=== PATIENT | female | born 1990 | race Caucasian/White ===

== ENCOUNTER 2020-05-19 07:55 | Outpatient (REF) | payer BC, SELFPAY ==
--- NOTE | ~2020-05-19 | US_ITS ---
EXAMINATION: US DIAGNOSTIC ULTRASOUND BREAST, LEFT CLINICAL INFORMATION: Palpable abnormality. COMPARISON: Mammogram of same day. TECHNIQUE: Ultrasound of the breast is performed with real-time stevenson scale imaging and color Doppler. FINDINGS: Targeted left breast ultrasound in region of palpable abnormality demonstrated at the 7:00 location approximately 5 cm from the nipple a heterogeneous and hypoechoic lesion which appears mildly lobulated with some of its margin not being well identified. No internal vascularity is seen. There is a small amount of distal sound enhancement. Lesion is wider than it is tall. The lesion measures approximately 8 x 4 x 8 mm in size. Ultrasound-guided biopsy is recommended. Results are discussed with the patient at time of visit. Breast center navigator called above recommendation to referring provider's office. US/US breast LT limited IMPRESSION: Indeterminate lesion region of palpable abnormality of the left breast for which ultrasound-guided core biopsy is recommended. ASSESSMENT: BI-RADS 4: Suspicious (subcategory 4A: Low suspicion for malignancy) RECOMMENDATION: Ultrasound-guided biopsy left breast
--- NOTE | ~2020-05-19 | MM_ITS ---
EXAMINATION: MM DIAGNOSTIC DIGITAL BREAST TOMOSYNTHESIS, BILATERAL LEFT BREAST ULTRASOUND CLINICAL INFORMATION: Left breast lump inferior medial aspect. The lifetime risk of breast cancer based on the Tyrer-Cuzick Model is 12.7%. COMPARISON: Mammography: None TECHNIQUE: Digital breast tomosynthesis is performed in both the craniocaudal and mediolateral oblique views along with computer-aided detection (CAD). Synthesized 2D images are generated from the tomosynthesis. Bilateral exaggerated craniocaudal views performed. Targeted left breast ultrasound. FINDINGS: The breasts are extremely dense, which lowers the sensitivity of mammography (ACR BI-RADS breast composition Category d). A few skin lesions are noted about the right breast. Within the deep medial aspect of the left breast there appears to be a 1.0 x 1.4 cm circumscribed density in region of palpable abnormality. No other significant findings are identified. No suspicious grouping of microcalcifications. Targeted left breast ultrasound in region of palpable abnormality demonstrated at the 7 o'clock location, approximately 5 cm from the nipple, a heterogeneous and hypoechoic lesion which appears mildly lobulated with some of its margin not being well identified. No internal vascularity is seen. There is a small amount of distal sound enhancement. Lesion is wider than it is tall. The lesion measures approximately 8 x 4 x 8 mm in size. Ultrasound-guided biopsy is recommended. Results are discussed with the patient at time of visit. Breast center navigator called above recommendation to referring provider's office. MM/MM tomosynthesis diagnostic BI IMPRESSION: Indeterminate lesion region of palpable abnormality of the left breast for which ultrasound-guided core biopsy is recommended. ASSESSMENT: BI-RADS 4: Suspicious (subcategory 4A: Low suspicion for malignancy) RECOMMENDATION: Ultrasound-guided biopsy left breast.
== END 2020-05-19 07:56 | disposition home or self-care (01) ==
LOC: HO.MAMMO 07:55
PROVIDERS: PCP Internal Medicine; Visit Provider Physician Assistant
DX: N63.24 Unspecified lump in the left breast, lower inner quadrant (principal)
CPT/HCPCS: 76642; 77062; 77066

== ENCOUNTER 2020-05-25 09:09 | Outpatient (REF) | payer BC, SELFPAY ==
--- NOTE | ~2020-05-25 | MM_ITS ---
EXAMINATION: ULTRASOUND GUIDED CORE BIOPSY BREAST, LEFT POST PROCEDURE DIGITAL MAMMOGRAM, LEFT CLINICAL INFORMATION: Heterogeneous hypoechoic lesion near area of palpable concern 7:00 left breast measuring under 1 cm. No mammographic correlate. COMPARISON: Mammography and targeted breast ultrasound 05/19/2020. FINDINGS: Proper informed consent is obtained from the patient after discussion of the procedure, potential risks and complications, and alternatives. Patient was given an opportunity for questions. The patient appeared to understand. The patient consented to the procedure and signed the consent form. GUIDANCE: Ultrasound-guided; aseptic technique. LESION: Hypoechoic lesion 7:00 position 5 cm from nipple measuring approximately 0.8 x 0.4 x 0.8 cm. Some differential considerations include apocrine metaplasia, papilloma, PASH, fibroadenoma. There is an adjacent simple cyst near this area not previously described measuring 0.8 cm. APPROACH: Mediolateral. ANESTHESIA: 10 mL 1% lidocaine. DERMATOTOMY: Single skin jarvis dermatotomy performed. NEEDLE: 14-gauge Achieve core biopsy device with 13.5-gauge co-axial guide needle. CORES: 5. CLIP: HydroMARK; shape: butterfly. POST PROCEDURE UNILATERAL DIGITAL MAMMOGRAM: The post biopsy mammogram is performed in separate room using separate digital mammography equipment from the biopsy procedure. CC and ML views are obtained. The breasts are extremely dense, which lowers the sensitivity of mammography (breast composition category: d). The clip marker is in position. No gross hematoma. The patient tolerated the procedure well. No immediate complications. Home instructions reviewed with the patient. Final pathology results are pending. MM/MM diagnostic mammo unilat LT IMPRESSION: 1. Status post ultrasound-guided core biopsy left breast. 2. Clip placed: HydroMARK; shape: butterfly. 3. Pathology pending. An addendum report will be issued.
== END 2020-05-25 09:10 | disposition home or self-care (01) ==
LOC: HO.MAMMO 09:09
PROVIDERS: Visit Provider Surgery
DX: N63.24 Unspecified lump in the left breast, lower inner quadrant (principal); R92.2 Inconclusive mammogram; F17.200 Nicotine dependence, unspecified, uncomplicated
CPT/HCPCS: 19083; 77065; 88305; 88312; 88313; 88342

== ENCOUNTER → 2020-06-01 13:21 | Outpatient (BNVA) | payer BC, SELFPAY | PROVIDERS: PCP Internal Medicine; Visit Provider Surgery ==

== ENCOUNTER 2020-12-29 11:08 | Outpatient (REF) | payer BC, SELFPAY ==
[2020-12-29 14:10] LABS: MANUAL DIFF FLAG NO
[2020-12-29 14:25] LABS: Estimated Average Glucose 88 mg/dL; Hemoglobin A1c % 4.7 %
[2020-12-29 14:27] LABS: Alanine Aminotransferase 8 U/L (0-31); Albumin Level 4.4 g/dL (3.5-5.0); Alkaline Phosphatase 48 U/L (39-117); Anion Gap 12 (12-20); Aspartate Amino Transferase 15 U/L (5-31); Bilirubin Total 0.3 mg/dL (0.0-1.0); Blood Urea Nitrogen 8 mg/dL (9-16); C Reactive Protein 0.82 mg/dL (< or = 0.50); Calcium 9.9 mg/dL (8.4-10.2); Carbon Dioxide 25 mmol/L (22-29); Chloride 107 mmol/L (96-108); Estimated Glomerular Filt Rate > 60; Glucose Random 100 mg/dL (60-115); Rheumatoid Factor < 15.0 IU/mL (<15.0); Sodium 140 mmol/L (135-145); Total Protein 7.1 g/dL (6.5-8.0)
[2020-12-29 14:28] LABS: Basophils Percent Auto 0.4 % (0-2); Eosinophils Absolute Auto 0.1 X10*3/uL (0.0-0.4); Eosinophils Percent Auto 1.3 % (0-4); Hematocrit 39.2 % (37-47); Hemoglobin 13.1 g/dl (12.0-16.0); Imm Gran Abs Auto 0.03 X10*3/uL (0.00-0.03); Imm Gran Pct Auto 0.4 % (0.0-0.4); Lymphocytes Absolute Auto 2.2 X10*3/uL (1.2-4.9); Lymphocytes Percent Auto 28.1 % (20-40); Mean Corpuscular HGB Conc 33.4 g/dl (31.0-35.0); Mean Corpuscular Hemoglobin 30.3 pg (27.0-33.0); Mean Corpuscular Volume 90.5 fL (80-98); Mean Platelet Volume 10.1 fL (9.4-12.3); Monocytes Absolute Auto 0.5 X10*3/uL (0.1-1.2); Neutrophils Percent Auto 63.8 % (45-73); Platelet Count 297 X10*3/uL (160-400); Red Blood Count 4.33 X10*6/uL (4.20-5.50); Red Cell Distribution Width 12.9 % (11.0-16.0); White Blood Count 7.9 X10*3/uL (4.8-10.8)
[2020-12-29 14:50] LABS: Free T4 (Free Thyroxine) 0.93 ng/dL (0.71-1.85); Thyroid Stimulating Hormone 1.79 uIU/mL (0.32-4.0); Vitamin D 25-OH Total 21.7 ng/mL (>30)
[2020-12-29 15:00] LABS: Folate 17.1 ng/mL (> or = 4.0); Vitamin B12 306 pg/mL (200-900)
[2020-12-29 15:13] LABS: Erythrocyte Sedimentation Rate 3 MM/HR (0-20)
[2020-12-30 13:12] LABS: Lyme Abs Screen <0.90 index
[2021-01-01 17:50] LABS: Anti Nuclear Antibody Screen POSITIVE (NEGATIVE)
== END 2020-12-29 11:09 | disposition home or self-care (01) ==
LOC: HO.MANLDS 11:08
PROVIDERS: PCP Physician Assistant; Visit Provider Physician Assistant
DX: G62.9 Polyneuropathy, unspecified (principal)
CPT/HCPCS: 36415; 80053; 82306; 82607; 82746; 83036; 84439; 84443; 85025; 85652; 86038; 86039; 86140; 86431; 86617; 86618

== ENCOUNTER 2023-01-28 12:41 | Outpatient (REF) | payer BC, SELFPAY ==
--- NOTE | ~2023-01-28 | XR_ITS ---
EXAMINATION: XR LUMBOSACRAL SPINE CLINICAL INFORMATION: Low back pain. COMPARISON: Radiographs of the abdomen of 04/28/2018. TECHNIQUE: Three views of the lumbar spine. FINDINGS: Mild dextroscoliosis of the lumbar spine. Mild spondylosis in the mid to lower lumbar spine with mild loss of disc space height at L5-S1. Mild facet arthritis in the lower lumbar spine. XR/XR lumbar spine 2-3V IMPRESSION: Mild dextroscoliosis of the lumbar spine. Mild spondylosis in the mid to lower lumbar spine.
== END 2023-01-28 12:42 | disposition home or self-care (01) ==
LOC: HO.XRAY 12:41
PROVIDERS: PCP Internal Medicine; Visit Provider Physician Assistant
DX: M54.51 Vertebrogenic low back pain (principal)
CPT/HCPCS: 72100

== ENCOUNTER 2024-09-28 07:30 | Outpatient (REF) | payer BC, SELFPAY ==
--- NOTE | ~2024-09-28 | MM_ITS ---
EXAMINATION: 1) MAMMO BREAST DIAGNOSTIC TOMOSYNTHESIS BILATERAL 2) US BREAST LIMITED LEFT CLINICAL INFORMATION: Left breast lower inner quadrant lump. 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 Ultrasound-guided needle core biopsy of the left breast May 25, 2020. TECHNIQUE: Digital breast tomosynthesis is performed in both the craniocaudal and mediolateral oblique views along with computer-aided detection (CAD). Synthesized 2D images are generated from the tomosynthesis. Additional spot magnified compression views of the left breast were also performed. BB marker was placed at the location of the left breast palpable lump as indicated by the patient. FINDINGS: BREAST COMPOSITION: There are scattered areas of fibroglandular density (ACR BI-RADS breast composition Category b). RIGHT BREAST: No significant masses, suspicious calcifications or other abnormalities are seen. LEFT BREAST: Tissue marker from previous needle core biopsy. Grouped round calcifications in the lower slightly outer quadrant middle depth has benign features. No significant masses, suspicious calcifications or other abnormalities are seen. In particular, no suspicious mammographic findings adjacent to the BB Targeted ultrasound of the left breast was performed at the location of the palpable concern. The survey shows a 0.7 x 0.4 x 0.6 cm cystic structure at 6 o'clock position 1 cm from the nipple, which appears continuous with the nipple. No internal vascularity demonstrated with color Doppler evaluation. MM/MM tomosynthesis diagnostic BI IMPRESSION: RIGHT BREAST: Negative, no mammographic evidence of malignancy. LEFT BREAST: Palpable concern correlates with the cystic structure at 6 o'clock position 1 cm from the nipple. This could represent focally ectatic duct. Probably benign. A six-month follow-up ultrasound is recommended. ASSESSMENT: BI-RADS BI-RADS 3 - Probably benign finding(s) - 6 month follow-up suggested RECOMMENDATION: 6 Month F/U Results were provided to the patient at time of visit by the technologist. This patient's information was entered into a reminder system with a target due date for their next mammogram. Electronically signed by: Remedios Diaz MD 09/28/2024 09:52 AM EDT
--- OUTSIDE RECORDS SUMMARY | 2024-09-28 07:32 | XMS_ITS | Data Portability ---
Author Organization [facility], Telehealth Patient Home Address [address] [place] [address] Assessment Encounter Date Assessment Date Assessment LastModified by Organization Details LastModified Time 05/12/2020 05/12/2020 [id number] [place] [id number] (PATIENT COORDINATOR) : MDM LOW MUST MEET 2 OF 3 ELEMENTS: PROBLEMS, DATA OR RISK ELEMENT 1: PROBLEMS ADDRESSED (LOW): OR OR 1 ACUTE UNCOMPLICATED ILLNESS OR INJURY ELEMENT 2: DATA TO BE REVISED AND ANALYZED (LOW) MUST MEET 1 OF 2 CATEGORIES: CATEGORY 1. REVIEW OF PRIOR EXTERNAL NOTES/RESULTS, ORDERING OF TEST(S) CATEGORY 2. INCLUDE WHO THE HISTORIAN IS AND RELATION TO PT AND WHY PT IS UNABLE TO GIVE COMPLETE HISTORY ELEMENT 3: RISK (LOW) PROVIDER MUST THOROUGHLY DOCUMENT ALL OF THE ELEMENTS COVERED [email or web address] Not available 05/12/2020 14:39:21 01/28/2023 01/28/2023 Patient agreed and verbally consents to this audio and video Telehealth appt via a secure platform [email or web address] Not available 01/28/2023 11:38:25 Plan of Treatment Reminders Order Date Submit Date Provider Last Modified By Organization Details Last Modified Time Details Appointments None recorded. Lab lipid panel, blood 2020 [facility], [address] [place] [address], [place], [address], 11:04:48 vitamin B12 + folate, serum or blood 2020 [facility], [address] [place] [address], [address], 11:43:27 CMP, serum or plasma 2020 [facility], [address] [place] [address], [address], 11:43:27 CBC w/ auto diff 2020 [facility], [address] [place] [address], [address], 11:43:28 ESR (erythrocy te sedimentat ion rate), blood 2020 [facility], [address] [place] [address], [address], 11:43:28 TSH + free T4, serum 2020 [facility], [address] [place] [address], [address], 11:43:28 C-reactive protein, quantitati ve, serum or plasma 2020 [facility], [address] [place] [address], [address], 11:04:49 ALYSSA + rf (antinucle ar antibodies + rheumatoid factor), quantitati ve, serum 2020 [facility], [address] [place] [address], [address], 11:30:48 hemoglobin A1c, QN, blood 2020 [facility], [address] [place] [address], [address], 11:04:48 vitamin D, 25-hydroxy , total, serum 2020 [facility], [address] [place] [address], [address], 10/25/202 1 11:43:27 lyme disease igg+igm, serum, reflex western blot 2020 021 [facility], [address] [place] [address], [place], [address], 1 11:04:49 CMP, serum or plasma 2018 019 TRUNG Not available 9 08:12:15 TSH + free T4, serum 2018 019 [email or web address] Not available 9 11:50:20 CBC 2018 019 TRUNG Not available 9 08:12:15 vitamin D, 25-hydroxy , total, serum 2018 019 TRUNG Not available 9 08:12:15 Referral dermatolog ist referral 2024 025 [email or web address] 10 [facility], [address] [place] [address], [address], [address], 5 10:28:27 Procedures None recorded. Surgeries None recorded. Imaging MAMMO, diagnostic , digital, bilateral - inner lower quadrant, about 2 to 3 cm away from nipple, around 4 oclock pt has hx of abnormal MM 2024 025 [facility] (Imaging), [address] [place] [address], [address], 5 08:12:17 US, breast, unilateral 2024 025 [email or web address] 10 [facility] (Imaging), [address] [place] [address], [address], 5 09:25:52 XR, lumbar spine, 2 view 2022 023 [facility] (Imaging), [address] [place] [address], [address], 3 08:32:48 MAMMO, diagnostic , digital, bilateral 2020 021 [facility], [address] [place], [address], 17:52:30 XR, kidney + ureter + bladder 2018 019 [facility] (Imaging), [address] [place], [address], 9 17:20:51 Medication Orders prednisone 10 mg tablet 2022 023 [id number], [address], [place], [id number], 5 11:43:03 tramadol 50 mg tablet 2022 023 [id number], [address], [place], [id number], 5 11:43:19 Chantix Starting Month Box 0.5 mg (11)-1 mg (42) tablets in dose pack 2018 019 [id number], [address], [place], [phone], 13:56:00 Patient TargetsNo targets recorded. Patient Instructions Encounter Date Encounter Id Patient Instructions Last Modified By Organization Details Last Modified Time 04/28/2018 [id number] smoking cessatio n counseling, greater than 3 minutes up to 10 minutes* [email or web address] Not available 05/05/2018 08:42:35 Reason for Referral Cop Winder Referral for H and wart wart? on thumb, increasing in size, causing pain Referring Physician: Lia Craven, Internal Medicine, Encounter Date: 09/08/2024 Results Created Date Observation Date Name Description Value Unit Range Abnormal Flag Note LastModifiedBy Organization Detail LastModifiedTime 04/30/19 19 04/28/2018 XR, kidne y + urete r + bladd er No observ ation record ed. [facility] [address] [facility], [place], [address], 05/15/2018 11:44:19 05/20/1905/19/2020 US, eulogio t No observ ation record ed. [address] [place], [address], 05/19/2020 14:58:03 05/20/19 21 05/19/2020 MAMMO , diagn ostic , digit al, bilat eral No observ ation record ed. [address] [place], [address], 05/20/2020 10:20:36 02/05/20 23 01/28/2023 XR, lumba r spine , 2 view No observ ation record ed. [facility] (Medical Records) [address] [place] [address], [address], 02/04/2023 16:43:19 02/06/20 23 01/28/2023 XR, lumba r spine , 2 view No observ ation record ed. [facility] (Medical Records) [address] [place] [address], [address], 02/05/2023 08:31:45 Result Notes None recorded. Problems Name Problem SNOMED Code Status Onset Date Resolution Date Notes Provider Name and Address Organization Details Recorded Time Panic attack 420520762 Active 2018 [facility] 9 08:11:55 Socialize d behavior disorder 133279470 Active 2018 [facility] 9 08:12:25 Anxiety 61668654 Active 2018 [facility] 9 08:12:31 Osteoma Active 2018 Left Leg [facility] 9 08:13:02 Low back pain 046236145 Active 2022 PONCHO LUCERO [address] [place], [address], [facility] 3 11:35:38 Hand wart 306898438 Active 2024 PONCHO LUCERO [address] [place], [address], [facility] 5 12:08:24 Lump in upper inner quadrant of left breast 226683307572 100 Active 2024 PONCHO LUCERO [address] [place], [address], [facility] 5 12:19:23 Lump in lower inner quadrant of left breast 810557381537 102 Active 2024 PONCHO LUCERO [address] [place], [address], [facility] 5 12:21:15 Problem Notes None recorded. Procedures Surgical History Date Name Laterality Status Provider Name and Address Organization Details Recorded Time 03/16/2015 Date of Last Pap Smear completed Valerie Amor [facility] 04/28/2018 08:14:42 Imaging Results None recorded. Procedure Notes None recorded. Medical Equipment None Reported. Allergies No known drug allergies Medications Name Sig Start Date Stop Date Status Note LastModified by Organization Details LastModified Time norgestimat e 0.25 mg-ethinyl estradiol 0.035 mg tablet Take 1 tablet every day by oral route. 09/08 completed Not Available Not Available Not Available prednisone 10 mg tablet 40 mg x 2 days30 mg x 2 days20 mg x 2 days10 mg x 2 days 09/08 completed Not Available Not Available Not Available methylpheni date 10 mg tablet TAKE 1 TABLET BY MOUTH TWICE DAILY FOR ADHD 09/08 completed Not Available Not Available Not Available prednisone 20 mg tablet 04/28 completed Not Available Not Available Not Available tramadol 50 mg tablet TAKE 1 TABLET BY MOUTH EVERY 6 HOURS FOR 7 DAYS NEEDED 09/08 completed Not Available Not Available Not Available Chantix Starting Month Box 0.5 mg (11)-1 mg (42) tablets in dose pack as package direction s 05/12 completed Not Available Not Available Not Available Flucelvax Quad 6006-7119 60 mcg (15 mcg x 4)/0.5 mL IM suspension active Not Available Not Available N ot Available Zafemy 150 mcg-35 mcg/24 hr transdermal patch 09/08 completed Not Available Not Available Not Available Vitals Date Recorded Body weight Heart rate Oxygen saturation Oxygen saturation in Arterial blood by Pulse oximetry Systolic And Diastolic Provider Name and Address Organization Details Last Updated DateTime 9 98117.6 g 77 /min 99 % 99 % 114/68 mm[Hg] Valerie Amor [facility] 9 11:33:39 Date Recorded Heart rate Oxygen saturation Oxygen saturation in Arterial blood by Pulse oximetry Systolic And Diastolic Provider Name and Address Organization Details Last Updated DateTime 05/12/2020 92 /min 99 % 99 % 118/60 mm[Hg] Noemí Riojas [facility] 1 13:56:38 Date Recorded Oxygen saturation Oxygen saturation in Arterial blood by Pulse oximetry Heart rate Systolic And Diastolic Provider Name and Address Organization Details Last Updated DateTime 09/08/2024 96 % 96 % 85 /min 118/76 mm[Hg] Jackelyn Snider [facility] 5 11:46:06 Date Recorded Oxygen saturation Oxygen saturation in Arterial blood by Pulse oximetry Heart rate Body weight Systolic And Diastolic Provider Name and Address Organization Details Last Updated DateTime 1 99 % 99 % 92 /min 43954.5 9 g 128/80 mm[Hg] Destinee Hsu [facility] 1 10:53:17 Social History Question Answer Notes LastModified by Organizat ion Details LastModified Time Tobacco Smoking Status Current Every Day Smoker Not Available [facility] 01/11/2020 03:36:23 What Was The Date Of Your Most Recent Tobacco Screening? 09/08/2024 [email or web address] Information not available 09/08/2024 How Much Tobacco Do You Smoke? 1 PPD Information not available 12/29/2020 Sex: Unknown Functional Status Question Answer Note LastModified by Organization D etails LastModified Time Do you or have you ever used any other forms of tobacco or nicotine? No Information not available 12/29/2020 Mental Status None recorded. Family History Nothing Reported. Medical History No medical history recorded. Gynecological History Statement/Question Response Date of Last Pap Smear 03/16/2015 Obstetrics History GPAL:G 0 P 0 0 0 0 Immunizations Vaccine Type Date Status Note Provider Nam e and Address Organization Details Recorded Time COVID-19, mRNA, LNP-S, PF, 100 mcg/0.5mL dose or 50 mcg/0.25mL dose 0 completed Destinee hennessy [facility] 12/29/2020 10:51:46 COVID-19, mRNA, LNP-S, PF, 100 mcg/0.5mL dose or 50 mcg/0.25mL dose 1 completed Destinee hennessy [facility] 12/29/2020 10:51:55 Influenza, split virus, quadrivalent, preservative 0 completed Noemí hennessy [facility] 05/12/2020 13:55:48 Past Encounters Encounter ID Performer Location Encounter Start Date Encounter Closed Date Diagnosis/Indication Diagnosis SNOMED-CT Code Diagnosis ICD10 Code Diagnosis Note [id number] David Rodriguez [facility] [address] [place] [address],[place] [address] 04/28/2018 11:29:33 04/28/2018 13:50:27 Tobacco user 967099714 Z72.0 Fatigue 68825623 R53.83 Low back pain 092917842 M54.5 [id number] David Rodriguez [facility] [address],[place] [address] 05/12/2020 13:48:27 05/12/2020 15:28:00 Mass of left breast 4046560528 9906713 N63.20 will fu with mammogram and possible US to r/o breast cancer [id number] David Rodriguez [facility] [address] [facility],[place] [address] 12/29/2020 10:44:31 12/29/2020 16:19:19 Neuropathy 014477272 G62.9 will fu with lab work up firstfu with patient when labs are in Finding of joint position sensation 654795291 R29.[address]/MRI of head and brain Screening for cardiovascular system disease 855273954 Z13.6 needs regular check [id number] David Rodriguez [facility] [address] [facility],[place] [address] 01/28/2023 09:13:47 01/28/2023 11:46:40 Low back pain 453516901 M54.51 will set up with pred taper and tramadolwi ll set up with XR in case more work up is needed in the future [id number] David Rodriguez [facility] [address] [facility],[place] [address] 09/08/2024 11:35:10 09/08/2024 13:25:34 Depression screening 183127475 Z13.31 negative Hand wart 989092662 B07. 9 will set up with dermatolog ist for removal Lump in lo wer inner quadrant of left breast 7433147255 36634 N63.24 will set up with MM and UShx of abnormal MM (fibrotic tissue) Health Concerns Section Related Observation LastModified by Organization Detai ls LastModified Time None Recorded Concern Status LastModified by Organization Details LastModified Time None Recorded Advance Directives Directive None Recorded Payers Insurance Date Sequence Insurance Name Policy Number Policy Valdovinos Covered Member ID Valdovinos Member ID Guarantor Name 09/07/2024 1 [employer] [id number] Shannan Rene Beverly [id number] Shannan Rene Beverly 09/07/2024 1 [employer] [id number] Shannan Beverly [id number] Shannan Beverly Notes Date Note Type Note Provider Name a nd Address Organization Details Recorded Time 9 text/html Wants to quit smoking, smokes 1 ppd last 12-13 years lost aunt recently and she promised her she'd quit smoking feels very fatigued, going through divorce began OCP's 6 weeks ago 2nd increased bleeding/clots, has not had PAP, awaiting appt w/hatchery worker had some nausea/headache 3 days end of March-has not recurred Carlene Cespedes NP, [address] [place], [address], [facility] 04/28/2018 12:10:51 1 text/html c/o lump in the left breast the patient presents to the office today with acute finding of left breast lump between 6 and 9 o'clock and swollen left axillary lymph node the patient states she noticed it this morning and prior to the development of the breast lump she noticed the lymph node the patient states the area of the lump is swollen and tender, will skin color changes, redness around the area will need fu with mammogram and possible US PONCHO LUCERO [address] [place], [address], [facility] 05/12/2020 14:39:33 1 text/html c/o heaviness in arms and legs the patient reports feelings of heaviness and difficulties with proprioceptionthe patient reports that this happens in her bilaterally hands, feet and legs states that she has to manually maneuver her legs into bed sometimes because they don't cooperate with her wanting to move this happens intermittently, has been happening for the past few yearsno correlation with time of day, exercise, seasonal changes, dietary changes will fu with labs testing first did discuss some of her symptoms could be related to MS but this diagnosis is low on the differential and will need further testing will start with lab work for possible def PONCHO LUCERO [address] [place], [address], [facility] 12/29/2020 11:11:43 3 text/html c/o low back pain tele-med phone callpatient consents to phone call the patient reports that she has had low back painthe patient denies any trauma or pain the patient report left sided low back pain, no radiationtingling in her left foot worse with sitting down and bending forwardcannot lay down flat no changes in urinationor stool tried heat, NSAIDS, rest, ice no difference PONCHO LUCERO [address] [place], [address], [facility] 01/28/2023 11:39:44 5 text/html c/o left breast lump the patient has left breast mass, started in skin changes, nipple inversion, no dischargedenies any swelling around the armpit area or neckno abdominal pain or swelling the patient has a hx of abnormal MM in 2020 with another breast lump she had previously, was found to be denser fibrotic tissue recommended repeat MM and USpt agrees exam noted in PE section for findingstender to palpation also pt has a lump/bump on the right thumb, looks like a wart? swelling around itrecommended derm consult and also routine derm appts for yearly skin checks PONCHO LUCERO [address] [place] [address], [place], [address], [facility] 09/08/2024 12:29:26 OBGyn Episode No OBEpisode recorded.
--- OUTSIDE RECORDS SUMMARY | 2024-09-28 07:32 | XMS_ITS | Encounter Summary ---
Author Organization [facility] Address [address] [place] [address] Phone Care Team Providers Care Compactor Driver Name Role Phone David Rodriguez DO Primary Care Provider [phone] David Rodriguez DO Unavailable Encounter Details Date Type Department Care Team (Late st Contact Info) Description 05/03/2021 Ancillary Orders [facility] Rheumatology [address] [place] [address] Gabriella Lee MD [address], [address] [place] [address] [email or web address] Weakness of both lower extremities; Osteoid osteoma of femur, left Social History Tobacco Use Types Packs/Day Years Used Date Smoking Tobacco: Every Day Cigarettes Smokeless Tobacco: Never Alcohol Use Standard Drinks/Week Comments Yes 0 (1 standard drink = 0.6 oz pur e alcohol) Comments No Sex and Gender Information Value Date Recorded Sex Assigned at Not on file Legal Sex Female 10:26 PM EDT Gender Identity Female 04/30/2021 9:43 AM EST Sexual Orientation Straight 04/30/2021 9: 43 AM EST documented as of this encounter Plan of Treatment Not on file documented as of this encounter Results * XR PELVIS AP PLUS FROG OR OUTLET 2 VIEWS (05/03/2021 12:35 PM EST) Anatomical Region Laterality Modality Hip, Pelvis Computed Radiogr aphy 05/03/2021 1:02 PM EST Impressions 05/03/2021 1:24 PM EST 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 POS [id number] . Narrative 05/03/2021 1:24 PM EST AP and frog-lateral pelvis, 2 views No comparison No evidence of trauma, tumor or AVN. No significant arthritic changes however there does appear to be a crossover sign in both acetabula suggesting retroversion which would predispose to pincer-type impingement. No significant soft tissue calcifications Visualized LS-spine, SI joints and symphysis pubis unremarkable. Procedure Note Aj Ramirez MD - 05/03/2021 AP and frog-lateral pelvis, 2 views No comparison No evidence of trauma, tumor or AVN. No significant arthritic changes however there does appear to be a crossover sign in both acetabula suggesting retroversion which wouldpredispose to pincer-type impingement. No significant soft tissue calcifications Visualized LS-spine, SI joints and symphysis pubis unremarkable. IMPRESSION: The findings suggest acetabular retroversion which may predispose to FAIbut otherwise unremarkable plain film appearance of the pelvis. POS [id number] . us Gabriella Lee MD IMG XR PELVIS Final Re sult documented in this encounter Visit Diagnoses Diagnosis Weakness of both lower extremities Osteoid osteoma of femur, left Weakness of both lower extremities Osteoid osteoma of femur, left documented in this encounter Care Teams Compactor Driver Relationship Specialty Start Date End Date David Rodriguez DO PCP - General Internal Medicine 12/20/20 David Rodriguez DO [email or web address] 12/20/20 documented as of this encounter Additional Source Comments The information contained in this document represents components of the legal health record. It is not the complete legal health record.[facility]
== END 2024-09-28 07:31 | disposition home or self-care (01) ==
LOC: HO.MAMMO 07:30
PROVIDERS: PCP Internal Medicine; Visit Provider Internal Medicine
DX: N63.24 Unspecified lump in the left breast, lower inner quadrant (principal)
CPT/HCPCS: 76642; 77062; 77066

== ENCOUNTER → 2024-09-28 07:30 | Outpatient (BNV) | payer BC, SELFPAY | PROVIDERS: PCP Internal Medicine; Visit Provider Radiology Body Imaging | DX: N63.24 Unspecified lump in the left breast, lower inner quadrant (principal) | CPT/HCPCS: 76642; 77062; 77066 ==